=== PATIENT | male | born 1995 | race Asian ===

== ENCOUNTER 2020-06-07 13:45 | Inpatient (IN) | payer MEDICAID ==
[~2020-06-07] VITALS: Ht 177.8 cm; Wt 95.3 kg
[2020-06-07 14:30] LABS: BASOPHILS % 0.6 % (0.0-2.0); EOSINOPHILS % 0.5 % (0.0-5.0); HEMATOCRIT. 46.8 % (42.0-52.0); HEMOGLOBIN. 15.7 g/dL (14.0-18.0); LYMPHOCYTES % 7.3 % (20.0-50.0); MEAN CORPUSCULAR HEMOGLOBIN 28.7 pg (28.0-32.0); MEAN CORPUSCULAR VOLUME 85.4 fL (80.0-94.0); MEAN PLATELET VOLUME 8.1 fl (7.4-10.4); MONOCYTES % 10.2 % (2.0-8.0); NEUTROPHILS % 81.4 % (40.0-76.0); PLATELET 212 x1000/uL (130-400); RED BLOOD CELL COUNT 5.48 mill/uL (4.7-6.1); RED CELL DISTRIBUTION WIDTH 12.8 % (11.6-14.6)
[2020-06-07] MEDS ORDERED: SODIUM CHLORIDE 0.9% 1000ML BAG (SEPSIS BOLUS) IV ONE (14:30)
[2020-06-07] MEDS ORDERED: VANCOMYCIN 1 G PREMIX 200 ML IV ONE (14:30)
[2020-06-07] MEDS ORDERED: PIPERACILLIN/TAZ 3.375G PREMIX 50 ML IV ONE (14:30)
[2020-06-07 14:38] LABS: CLARITY URINE CLEAR (CLEAR); COLOR URINE YELLOW (YELLOW); KETONES URINE 1+ (NEGATIVE); LEUKOCYTE ESTERASE URINE NEGATIVE (NEGATIVE); NITRITE URINE NEGATIVE (NEGATIVE); OCCULT BLOOD URINE NEGATIVE (NEGATIVE); PROTEIN URINE NEGATIVE (NEGATIVE); SPECIFIC GRAVITY URINE 1.023 (1.005-1.030); UROBILINOGEN URINE 0.2 E.U./dL (0.2-1.0)
[2020-06-07 14:39] LABS: CHLORIDE 105 mEq/L (98-107)
[2020-06-07] MEDS ORDERED: LORAZEPAM 2MG/ML CPJ IV ONE ×2 (19:30→21:45)
[2020-06-07] MEDS ORDERED: ACETAMINOPHEN 325MG TABLET PO ONE (19:30)
[2020-06-07] MEDS ORDERED: SODIUM CHLORIDE 0.9% 1,000 ML IV ONE ×2 (21:30→21:45)
[2020-06-08] MEDS ORDERED: ACETAMINOPHEN 325MG TABLET PO PRN (03:30)
[2020-06-08] MEDS ORDERED: BENZONATATE 100MG CAPSULE PO PRN (12:00)
[2020-06-08] MEDS ORDERED: AZITHROMYCIN 500 MG TABLET PO ONE (12:00)
[2020-06-08] MEDS ORDERED: ONDANSETRON HCL 4MG/2ML INJ IV PRN (12:00)
[2020-06-08] MEDS: ENOXAPARIN 30MG/0.3ML SYR SUBCUT SCH ×2 (12:00→20:55)
[2020-06-08] MEDS ORDERED: ALPRAZOLAM 0.25 MG TABLET PO ONE (12:00)
[2020-06-08] MEDS: CEFTRIAXONE 1 G PREMIX 50 ML IV SCH (12:00)
[2020-06-08] MEDS: ACETAMINOPHEN 325MG TABLET PO PRN ×2 (15:16→20:55)
[2020-06-08 15:45] VITALS: BP 129/72
[2020-06-08 16:00] VITALS: BP 120/68
[2020-06-08] MEDS: METOPROLOL TARTRATE 25MG TABLET PO SCH (16:11)
[2020-06-08 16:32] LABS: *AMPHETAMINES SCREEN URINE NEGATIVE (NEGATIVE); *BARBITURATES SCREEN URINE NEGATIVE (NEGATIVE); *BENZODIAZEPINES SCREEN URINE NEGATIVE (NEGATIVE); *COCAINE SCREEN URINE NEGATIVE (NEGATIVE); CANNABINOID URINE SCREEN NEGATIVE (NEGATIVE); METHADONE URINE SCREEN NEGATIVE (NEGATIVE); OPIATES URINE SCREEN NEGATIVE (NEGATIVE); PHENCYCLIDINE URINE SCREEN NEGATIVE (NEGATIVE)
[2020-06-08] MEDS ORDERED: INFLUENZA VACCINE 05/PF 0.5 ML VIAL IM ONE (17:45)
[2020-06-08 20:00] VITALS: BP 132/82
[2020-06-08] MEDS: ALPRAZOLAM 0.25 MG TABLET PO PRN (22:44)
[2020-06-09 00:05] VITALS: BP 123/70
[2020-06-09 04:00] VITALS: BP 131/71
[2020-06-09 07:45] LABS: BASOPHILS % 0.5 % (0.0-2.0); EOSINOPHILS % 0.1 % (0.0-5.0); HEMATOCRIT. 43.6 % (42.0-52.0); HEMOGLOBIN. 14.5 g/dL (14.0-18.0); LYMPHOCYTES % 37.6 % (20.0-50.0); MEAN CORPUSCULAR HEMOGLOBIN 28.3 pg (28.0-32.0); MEAN CORPUSCULAR VOLUME 84.8 fL (80.0-94.0); MEAN PLATELET VOLUME 8.4 fl (7.4-10.4); MONOCYTES % 10.1 % (2.0-8.0); NEUTROPHILS % 51.7 % (40.0-76.0); PLATELET 179 x1000/uL (130-400); RED BLOOD CELL COUNT 5.14 mill/uL (4.7-6.1)
[2020-06-09 08:30] LABS: CHLORIDE 105 mEq/L (98-107)
[2020-06-09] MEDS: METOPROLOL TARTRATE 25MG TABLET PO SCH ×2 (09:01→20:37)
[2020-06-09] MEDS: ENOXAPARIN 30MG/0.3ML SYR SUBCUT SCH ×2 (09:01→20:37)
[2020-06-09] MEDS: AZITHROMYCIN 250 MG TABLET PO SCH (09:01)
[2020-06-09] MEDS: ACETAMINOPHEN 325MG TABLET PO PRN (09:36)
[2020-06-09] MEDS: ALPRAZOLAM 0.25 MG TABLET PO PRN (09:36)
[2020-06-09 12:00] VITALS: BP 114/60
[2020-06-09] MEDS: CEFTRIAXONE 1 G PREMIX 50 ML IV SCH (12:00)
[2020-06-09] MEDS ORDERED: CEFTRIAXONE 1 G PREMIX 50 ML IV SCH (15:00)
[2020-06-09 16:00] VITALS: BP 118/72
[2020-06-09] MEDS: DEXAMETHASONE 4MG TABLET PO SCH (17:28)
[2020-06-09] MEDS: CEFTRIAXONE 1,000 MG in DEXTROSE 5% WATER 50 ML IV SCH (17:28)
[2020-06-09 20:00] VITALS: BP 123/77
[2020-06-10] VITALS: BP 138/74
[2020-06-10] MEDS: ACETAMINOPHEN 325MG TABLET PO PRN (01:06)
[2020-06-10 04:00] VITALS: BP 110/62
[2020-06-10 08:00] VITALS: BP 129/69
[2020-06-10] MEDS: ENOXAPARIN 30MG/0.3ML SYR SUBCUT SCH (10:10)
[2020-06-10] MEDS: METOPROLOL TARTRATE 25MG TABLET PO SCH (10:10)
[2020-06-10] MEDS: AZITHROMYCIN 250 MG TABLET PO SCH (10:10)
[2020-06-10] MEDS: DEXAMETHASONE 4MG TABLET PO SCH (10:10)
[2020-06-10 12:00] VITALS: BP 121/74
[2020-06-10] MEDS ORDERED: METO25TA6 PO (13:05)
[2020-06-10] MEDS ORDERED: ACET-2708 MT (13:05)
[2020-06-10] MEDS ORDERED: DEX4 PO (13:05)
[2020-06-10] MEDS ORDERED: AZIT250T12 MT (13:05)
[2020-06-10 14:28] VITALS: BP 121/74
[2020-06-10 16:00] VITALS: BP 118/68
[2020-06-10] MEDS: CEFTRIAXONE 1,000 MG in DEXTROSE 5% WATER 50 ML IV SCH (16:00)
== END 2020-06-10 17:08 | disposition home or self-care (01) | DRG 720 ==
LOC: ER 13:45 → 7EST 21:34 → EDBEDREQ 21:36 → EDBEDREQTM 21:36 → EDBEDREQSVC 21:36 → ENRESERV 23:31 → CANRESERV 23:31 → ENRESERV 06-08 13:02 → 7EST 06-09 16:16
PROVIDERS: ADMIT Internal Medicine; ATTEND Internal Medicine
DX: A41.89 Other specified sepsis (principal); U07.1 COVID-19; J96.00 Acute respiratory failure, unspecified whether with hypoxia or hypercapnia; J12.89 Other viral pneumonia; E66.9 Obesity, unspecified; E87.1 Hypo-osmolality and hyponatremia; Z68.30 Body mass index [BMI] 30.0-30.9, adult
CPT/HCPCS: 36415; 71045; 80048; 80053; 80305; 81003; 83605; 84145; 84484; 85025; 87070; 87430; 87635; 87804; 93005; 99291; C1893; J0696; J1650; J2060; J2543; J3370; J7030; J7040; J7060; J8540